=== PATIENT | male | born 1975 ===

== ENCOUNTER 2017-10-22 14:35 | Emergency (ER) | payer BC ==
[2017-10-22 15:55] LABS: ABS Basophils 0 10^3/ul (0-0.2); ABS Eosinophils 0 10^3/ul (0-0.6); ABS Lymphocytes 1.8 10^3/ul (1.0-4.8); ABS Monocytes 0.6 10^3/ul (0-0.8); ABS Neutrophils 5.4 10^3/ul (1.5-7.7); ABS Nucleated RBC 0 10^3/ul; Eosinophil % 0.6 % (0-6); Hematocrit 43 % (42-52); Hemoglobin 14.8 g/dl (14.0-18.0); Mean Corpuscular HGB Conc 35 g/dl (31-36); Mean Corpuscular Hemoglobin 31 pg (27-31); Mean Corpuscular Volume 89 fL (80-94); Mean Platelet Volume 8.5 um3 (7.4-10.4); Nucleated Red Blood Cells % 0.1; Platelet Count 194 10^3/ul (150-450); Red Blood Count 4.79 10^6/ul (4.00-5.40); Red Cell Distribution Width 13 % (10.5-15); White Blood Count 7.9 10^3/ul (3.5-10.8)
[2017-10-22 16:02] LABS: INR 0.97 (0.77-1.02)
--- NOTE | 2017-10-22 16:05 | RAD ---
INDICATION: Fluttering in chest. Cough. Dizziness. COMPARISON: No relevant prior exams available on the [facility] for comparison. TECHNIQUE: Dual energy PA and routine lateral views of the chest were obtained. REPORT: Clear lungs and pleural spaces. Negative for pneumothorax. The heart, pulmonary vasculature, and mediastinal contours are unremarkable. Unremarkable osseous structures and soft tissue contours. IMPRESSION: #. No evidence for acute intrathoracic disease.
[2017-10-22 16:14] LABS: EGFR Non-African American 76.7 (>60)
[2017-10-22 17:50] VITALS: BP 131/87
--- NOTE | 2017-10-23 06:47 | ED ---
Palpitations / Dysrhythmia - HPI Summary HPI Summary: Patient is a 42-year-old male with no significant PMH presenting to the ED with feeling of fluttering in his chest which has been intermittent since last evening. He states the fluttering has been present since March/April, however has been intermittent, and only present when lying down. However today he awoke with the fluttering intermittently and throughout the morning hours as he was upright which has not been normal for him. He has also been endorsing some light dizziness. Denies symptoms currently on arrival to the ED. Denies any fevers, sweats, chills. Denies any shortness of breath. He takes no medications and denies any allergies. No cardiac history and family cardiac history includes HTN. He states he has been feeling otherwise well, exercises frequently, is a nonsmoker, drinks occasionally. Denies any chest pain or pressure. Denies any weakness in the extremities. - History of Current Complaint Chief Complaint: EDChestWallPain Time Seen by Provider: 10/22/17 15:17 Hx Obtained From: Patient Onset/Duration: Gradual Onset Timing: Constant Severity Initially: Mild Severity Currently: Mild Character: Irregular Aggravating: Position Alleviating: Nothing Associated Signs & Symptoms: Lightheadedness, Dizzy - Risk Factors Cardiac: Negative Pulmonary Embolism: Negative Atrial Fibrillation: Negative - Allergy/Home Medications Allergies/Adverse Reactions: Allergies Allergy/AdvReac Type Severity Reaction Status Date / Time No Known Allergies Allergy Verified 10/22/17 15:10 PMH/Surg Hx/FS Hx/Imm Hx Previously Healthy: Yes - Immunization History Hx Pertussis Vaccination: No Immunizations Up to Date: Yes Infectious Disease History: No Infectious Disease History: Denies: Traveled Outside the [place] in Last 30 Days - Social History Occupation: Employed Full-time Lives: Alone Alcohol Use: Rare Hx Substance Use: No Substance Use Type: Reports: None Hx Tobacco Use: No Smoking Status (MU): Never Smoked Tobacco Review of Systems Constitutional: Negative Negative: Fever, Chills, Fatigue, Skin Diaphoresis Negative: Photophobia, Blurred Vision, Diplopia Positive: Palpitations. Negative: Chest Pain Negative: Shortness Of Breath, Cough Negative: Rash, Bruising Neurological: Other - dizziness Negative: Headache, Weakness Negative: Anxious, Depressed All Other Systems Reviewed And Are Negative: Yes Physical Exam Triage Information Reviewed: Yes Vital Signs On Initial Exam: Initial Vitals Temp Pulse Resp BP Pulse Ox 97.4 F 70 18 178/106 98 10/22/17 15:05 10/22/17 15:05 10/22/17 15:05 10/22/17 15:05 10/22/17 15:05 Vital Signs Reviewed: Yes Appearance: Positive: Well-Nourished Skin: Positive: Warm, Skin Color Reflects Adequate Perfusion Head/Face: Positive: Normal Head/Face Inspection Eyes: Positive: EOMI, EMELIA, Conjunctiva Clear Neck: Positive: Nontender, No Lymphadenopathy Respiratory/Lung Sounds: Positive: Clear to Auscultation, Breath Sounds Present Cardiovascular: Positive: Pulses are Symmetrical in both Upper and Lower Extremities, IRR - PVC's. Negative: Leg Edema Left, Leg Edema Right Musculoskeletal: Positive: Normal, Strength/ROM Intact Neurological: Positive: Sensory/Motor Intact, Alert, Oriented to Person Place, Time, Speech Normal Psychiatric: Positive: Normal, Affect/Mood Appropriate AVPU Assessment: Alert Diagnostics - Vital Signs Vital Signs Temp Pulse Resp BP Pulse Ox 10/22/17 17:54 97.4 F 54 16 131/87 99 10/22/17 17:32 55 17 131/87 99 10/22/17 17:03 65 24 100 10/22/17 17:02 73 165/91 99 10/22/17 16:00 61 15 140/89 98 10/22/17 15:05 97.4 F 70 18 178/106 98 - Laboratory Lab Results: Lab Results 10/22/17 10/22/17 10/22/17 Range/Units 15:44 15:44 15:44 WBC 7.9 (3.5-10.8) 10^3/ul RBC 4.79 (4.00-5.40) 10^6/ul Hgb 14.8 (14.0-18.0) g/dl Hct 43 (42-52) % MCV 89 (80-94) fL MCH 31 (27-31) pg MCHC 35 (31-36) g/dl RDW 13 (10.5-15) % Plt Count 194 (150-450) 10^3/ul MPV 8.5 (7.4-10.4) um3 Neut % (Auto) 68.3 (38-83) % Lymph % (Auto) 23.0 L (25-47) % Hickman % (Auto) 7.7 H (0-7) % Eos % (Auto) 0.6 (0-6) % Baso % (Auto) 0.4 (0-2) % Absolute Neuts (auto) 5.4 (1.5-7.7) 10^3/ul Absolute Lymphs (auto) 1.8 (1.0-4.8) 10^3/ul Absolute Monos (auto) 0.6 (0-0.8) 10^3/ul Absolute Eos (auto) 0 (0-0.6) 10^3/ul Absolute Basos (auto) 0 (0-0.2) 10^3/ul Absolute Nucleated RBC 0 10^3/ul Nucleated RBC % 0.1 INR (Anticoag Therapy) (0.77-1.02) Sodium 138 (135-145) mmol/L Potassium 3.9 (3.5-5.0) mmol/L Chloride 104 (101-111) mmol/L Carbon Dioxide 26 (22-32) mmol/L Anion Gap 8 (2-11) mmol/L BUN 11 (6-24) mg/dL Creatinine 1.05 (0.67-1.17) mg/dL Est GFR ( Amer) 92.8 (>60) Est GFR (Non-Af Amer) 76.7 (>60) BUN/Creatinine Ratio 10.5 (8-20) Glucose 96 (70-100) mg/dL Lactic Acid 1.1 (0.5-2.0) mmol/L Calcium 9.7 (8.6-10.3) mg/dL Magnesium 1.9 (1.9-2.7) mg/dL Total Bilirubin 0.50 (0.2-1.0) mg/dL AST 23 (13-39) U/L ALT 20 (7-52) U/L Alkaline Phosphatase 42 (34-104) U/L CK-MB (CK-2) 2.3 (0.6-6.3) ng/mL Troponin I 0.00 (<0.04) ng/mL Total Protein 7.7 (6.4-8.9) g/dL Albumin 4.9 (3.2-5.2) g/dL Globulin 2.8 (2-4) g/dL Albumin/Globulin Ratio 1.8 (1-3) TSH 1.72 (0.34-5.60) mcIU/mL 10/22/17 Range/Units 15:44 WBC (3.5-10.8) 10^3/ul RBC (4.00-5.40) 10^6/ul Hgb (14.0-18.0) g/dl Hct (42-52) % MCV (80-94) fL MCH (27-31) pg MCHC (31-36) g/dl RDW (10.5-15) % Plt Count (150-450) 10^3/ul MPV (7.4-10.4) um3 Neut % (Auto) (38-83) % Lymph % (Auto) (25-47) % Hickman % (Auto) (0-7) % Eos % (Auto) (0-6) % Baso % (Auto) (0-2) % Absolute Neuts (auto) (1.5-7.7) 10^3/ul Absolute Lymphs (auto) (1.0-4.8) 10^3/ul Absolute Monos (auto) (0-0.8) 10^3/ul Absolute Eos (auto) (0-0.6) 10^3/ul Absolute Basos (auto) (0-0.2) 10^3/ul Absolute Nucleated RBC 10^3/ul Nucleated RBC % INR (Anticoag Therapy) 0.97 (0.77-1.02) Sodium (135-145) mmol/L Potassium (3.5-5.0) mmol/L Chloride (101-111) mmol/L Carbon Dioxide (22-32) mmol/L Anion Gap (2-11) mmol/L BUN (6-24) mg/dL Creatinine (0.67-1.17) mg/dL Est GFR ( Amer) (>60) Est GFR (Non-Af Amer) (>60) BUN/Creatinine Ratio (8-20) Glucose (70-100) mg/dL Lactic Acid (0.5-2.0) mmol/L Calcium (8.6-10.3) mg/dL Magnesium (1.9-2.7) mg/dL Total Bilirubin (0.2-1.0) mg/dL AST (13-39) U/L ALT (7-52) U/L Alkaline Phosphatase (34-104) U/L CK-MB (CK-2) (0.6-6.3) ng/mL Troponin I (<0.04) ng/mL Total Protein (6.4-8.9) g/dL Albumin (3.2-5.2) g/dL Globulin (2-4) g/dL Albumin/Globulin Ratio (1-3) TSH (0.34-5.60) mcIU/mL Result Diagrams: 10/22/17 15:44 10/22/17 15:44 Lab Statement: Any lab studies that have been ordered have been reviewed, and results considered in the medical decision making process. Course/Dx - Course Course Of Treatment: Patient is evaluated for heart palpitations/dysrhythmia. An EKG, normal sinus rhythm is captured, however on the monitor it was noted the patient was having PVCs. Pertinent off of these PVCs obtained. As the PVCs were present, patient was stating he felt the "fluttering" in his chest again, however did not feel dizzy or lightheaded. Discussed case with Dr. Sánchez who suggests a beta mireya and follow up with him in the office. Patient is hesitant to start a beta mireya as his BP tends to run low at 120/ 70. Discussed with the patient to take the low dose BB in the morning and if he develops low BP symptoms (dizziness, lightheadedness, syncopal episodes), he will discontinue the medication and call his PCP or the money counter. Follow up with cardiology is given. All labs including trop WNL. Chest xray shows no cardio pulmonary findings. - Diagnoses Differential Diagnosis/HQI/PQRI: Positive: Other - Arrhythmia, dysrhythmia Provider Diagnoses: PVC (premature ventricular contraction) Discharge - Sign-Out/Discharge Documenting (check all that apply): Patient Departure - Discharge Plan Condition: Stable Disposition: HOME Prescriptions: Metoprolol Succinate 25 mg PO DAILY #30 tab.er.24h Patient Education Materials: Metoprolol (By mouth), Premature Ventricular Contractions (ED) Referrals: Krunal Sánchez DO [Medical Doctor] - Kevin Pereyra MD [Primary Care Provider] - Additional Instructions: Please call cardiology on Wednesday for an appt Metoprolol once daily If you develop worsening symptoms, return to the ED If you develop dizziness or passing out - stop taking your medication and call PCP or cardiology - Billing Disposition and Condition Condition: STABLE Disposition: Home
== END 2017-10-22 17:54 | disposition home or self-care (01) ==
LOC: ED 14:35
DX: I49.3 Ventricular premature depolarization (principal); R42 Dizziness and giddiness
CPT/HCPCS: 36415; 71046; 80053; 82553; 83605; 83735; 84443; 84484; 85025; 85610; 93005; 99282